=== PATIENT | male | born 1960 | race African-American/Black ===

== ENCOUNTER 2018-11-02 06:13 | Emergency (ER) | payer BC ==
--- NOTE | 2018-11-02 07:44 | EDPHYS ---
Physician Documentation [facility] Name: Christopher Price Jr Age: 58 yrs Sex: Male : 1960 Arrival Date: 11/02/2018 Time: 06:15 Bed 6 Private MD: Fady Álvarez ED Physician Bi Her HPI: 11/02 06:25 This 58 yrs old Black Male presents to ER via Unassigned with complaints of Cold kb Symptoms. 06:25 The patient or guardian reports cough, that is intermittent, described as moderate, kb with productive sputum. Onset: The symptoms/episode began/occurred 10 day(s) ago. Severity of symptoms: At their worst the symptoms were mild, moderate, in the emergency department the symptoms are unchanged. Modifying factors: The symptoms are alleviated by nothing, the symptoms are aggravated by nothing. Associated signs and symptoms: Pertinent positives: sore throat, vomiting, Pertinent negatives: chest pain, diarrhea, ear ache, fever, nausea, rhinorrhea. The patient has not experienced similar symptoms in the past. The patient has not recently seen a physician. Pt reports cough and vomiting mucus for [address] Álvarez on 10/24 and was given bromfed dm, but he completed the bottle and it hasn't gone away. "This should have knocked it out.". Historical: - Allergies: 06:33 No Known Allergies; jd3 - Home Meds: 06:33 Metformin Oral [Active]; benazepril oral oral [Active]; jd3 - PMHx: 06:33 Diabetes - NIDDM; Hypertension; High Cholesterol; jd3 - PSHx: 06:33 Hernia repair; jd3 - Immunization history:: Adult Immunizations up to date. - Social history:: Smoking status: Patient/guardian denies using tobacco. - Ebola Screening: : Patient negative for fever greater than or equal to 101.5 degrees Fahrenheit, and additional compatible Ebola Virus Disease symptoms. ROS: 06:23 Constitutional: Negative for fever, chills, and weight loss, Neck: Negative for injury, kb pain, and swelling, Cardiovascular: Negative for chest pain, palpitations, and edema, Back: Negative for injury and pain, : Negative for injury, bleeding, discharge, and swelling, MS/Extremity: Negative for injury and deformity, Skin: Negative for injury, rash, and discoloration, Neuro: Negative for headache, weakness, numbness, tingling, and seizure. 06:23 ENT: Positive for sore throat. 06:23 Respiratory: Positive for cough, Negative for dyspnea on exertion, hemoptysis, orthopnea, pleurisy, shortness of breath, wheezing. 06:23 Abdomen/GI: Positive for vomiting, Negative for abdominal pain, nausea, diarrhea, constipation, abdominal cramps, abdominal distension, anorexia. Exam: 06:23 Constitutional: This is a well developed, well nourished patient who is awake, alert, kb and in no acute distress. Head/Face: Normocephalic, atraumatic. Neck: Trachea midline, no thyromegaly or masses palpated, and no cervical lymphadenopathy. Supple, full range of motion without nuchal rigidity, or vertebral point tenderness. No Meningismus. Chest/axilla: Normal chest wall appearance and motion. Nontender with no deformity. No lesions are appreciated. Cardiovascular: Regular rate and rhythm with a normal S1 and S2. No gallops, murmurs, or rubs. Normal PMI, no JVD. No pulse deficits. Respiratory: Lungs have equal breath sounds bilaterally, clear to auscultation and percussion. No rales, rhonchi or wheezes noted. No increased work of breathing, no retractions or nasal flaring. Abdomen/GI: Soft, non-tender, with normal bowel sounds. No distension or tympany. No guarding or rebound. No evidence of tenderness throughout. Skin: Warm, dry with normal turgor. Normal color with no rashes, no lesions, and no evidence of cellulitis. MS/ Extremity: Pulses equal, no cyanosis. Neurovascular intact. Full, normal range of motion. Neuro: Awake and alert, GCS 15, oriented to person, place, time, and situation. Cranial nerves II-XII grossly intact. Motor strength 5/5 in all extremities. Sensory grossly intact. Cerebellar exam normal. Normal gait. 06:23 ENT: External ear(s): are unremarkable, Ear canal(s): are normal, TM's: are normal, Nose: is normal, Mouth: is normal, Posterior pharynx: Airway: normal, Tonsils: are normal in appearance, Uvula: normal, midline, swelling, is not appreciated, erythema, that is mild. Vital Signs: 06:30 BP 148 / 80; Pulse 71; Resp 18 S; Temp 97.5(O); Pulse Ox 99% on R/A; Weight 129.73 kg jd3 (R); Height 6 ft. 6 in. (198.12 cm) (R); Pain 7/10; 07:20 BP 137 / 88; Pulse 65; Resp 14; Temp 98.2; Pulse Ox 99% on R/A; Pain 5/10; ch 06:30 Body Mass Index 33.05 (129.73 kg, 198.12 cm) jd3 MDM: 06:22 Patient medically screened. kb 06:23 Data reviewed: vital signs, nurses notes. kb 07:08 Data interpreted: Pulse oximetry: on room air is 99 %. Interpretation: normal. kb 07:38 Counseling: I had a detailed discussion with the patient and/or guardian regarding: the kb historical points, exam findings, and any diagnostic results supporting the discharge/admit diagnosis, lab results, radiology results, the need for outpatient follow up, a family practitioner, to return to the emergency department if symptoms worsen or persist or if there are any questions or concerns that arise at home. 11/02 06:23 Order name: Flu; Complete Time: 07:37 kb 11/02 06:23 Order name: Strep; Complete Time: 07:37 kb 11/02 06:23 Order name: Chest Pa And Lat (2 Views) XRAY 11/02 07:38 Order name: Throat Culture EDMS Administered Medications: No medications were administered Disposition: 11/02/18 07:43 Discharged to Home. Impression: Cough. - Condition is Stable. - Discharge Instructions: Cough, Adult, [id number]. - Medication Reconciliation Form, Thank You Letter, Antibiotic Education, Prescription Opioid Use form. - Follow up: Emergency Department; When: As needed; Reason: Worsening of condition. Follow up: Private Physician; When: 2 - 3 days; Reason: Recheck today's complaints, Continuance of care, Re-evaluation by your physician. - Notes: Take an antihistamine daily (yola, claritin, or zyrtec) Addendum: 11/06/2018 06:59 Co-signature as Attending Physician, Bi Her MD. g s Signatures: Dispatcher [employer] EDLennie Thomas, DAVIE BRIONES-Susan Gamboa, RN RN sv Bi Her MD MD gs Davies, Jonathon RN RN jd3 Corrections: (The following items were deleted from the chart) 11/02 07:48 07:43 11/02/2018 07:43 Discharged to Home. Impression: Cough. Condition is Stable. sv Forms are Medication Reconciliation Form, Thank You Letter, Antibiotic Education, Prescription Opioid Use. Follow up: Emergency Department; When: As needed; Reason: Worsening of condition. Follow up: Private Physician; When: 2 - 3 days; Reason: Recheck today's complaints, Continuance of care, Re-evaluation by your physician. kb
--- NOTE | 2018-11-02 07:44 | ER ---
Nurse's Notes [facility] Name: Christopher Price Jr Age: 58 yrs Sex: Male : 1960 Arrival Date: 11/02/2018 Time: 06:15 Bed 6 Private MD: Fady Álvarez Diagnosis: Cough Presentation: 11/02 06:29 Presenting complaint: Patient states: "I have had a cold for a while now and I can't jd3 stop coughing now and I have even finished the medication form the doctor.". Transition of care: patient was not received from another setting of care. Onset of symptoms was November 02, 2018. Risk Assessment: Do you want to hurt yourself or someone else? Patient reports no desire to harm self or others. Initial Sepsis Screen: Does the patient meet any 2 criteria? No. Patient's initial sepsis screen is negative. Does the patient have a suspected source of infection? No. Patient's initial sepsis screen is negative. Care prior to arrival: None. 06:29 Method Of Arrival: Ambulatory j 06:29 Acuity: LAURI 4 jd3 Historical: - Allergies: 06:33 No Known Allergies; jd3 - Home Meds: 06:33 Metformin Oral [Active]; benazepril oral oral [Active]; jd3 - PMHx: 06:33 Diabetes - NIDDM; Hypertension; High Cholesterol; jd3 - PSHx: 06:33 Hernia repair; jd3 - Immunization history:: Adult Immunizations up to date. - Social history:: Smoking status: Patient/guardian denies using tobacco. - Ebola Screening: : Patient negative for fever greater than or equal to 101.5 degrees Fahrenheit, and additional compatible Ebola Virus Disease symptoms. Screenin:33 Abuse screen: Denies threats or abuse. Nutritional screening: No deficits noted. jd3 Tuberculosis screening: No symptoms or risk factors identified. Fall Risk Ambulatory Aid- None/Bed Rest/Nurse Assist (0 pts). Gait- Normal/Bed Rest/Wheelchair (0 pts) Mental Status- Oriented to own ability (0 pts). Total Hernandez Fall Scale indicates No Risk (0-24 pts). Assessment: 06:34 General: Appears in no apparent distress. comfortable, Behavior is calm, cooperative, ao appropriate for age. Pain: Denies pain. Neuro: Level of Consciousness is awake, alert, obeys commands, Oriented to person, place, time, situation, Appropriate for age Moves all extremities. Full function Speech is normal, Facial symmetry appears normal. Cardiovascular: Capillary refill < 3 seconds Patient's skin is warm and dry. Respiratory: Airway is patent Respiratory effort is even, unlabored, Respiratory pattern is regular, symmetrical. Respiratory: Reports cough that is productive. GI: Abdomen is non-distended, Reports normal bowel habits, Patient currently denies nausea, vomiting. : No signs and/or symptoms were reported regarding the genitourinary system. EENT: No signs and/or symptoms were reported regarding the EENT system. Derm: Skin is intact, Skin is pink, warm \\T\\ dry. normal, Skin temperature is warm. Musculoskeletal: Circulation, motion, and sensation intact. Range of motion: intact in all extremities. 07:20 Reassessment: Patient appears in no apparent distress at this time. No changes from ch previously documented assessment. Patient and/or family updated on plan of care and expected duration. Pain level reassessed. Patient is alert, oriented x 3, equal unlabored respirations, skin warm/dry/pink. Pain: Denies pain. Neuro: No deficits noted. Level of Consciousness is awake, alert, obeys commands, Oriented to person, place, time, situation. 07:47 Reassessment: Patient appears in no apparent distress at this time. No changes from sv previously documented assessment. Patient and/or family updated on plan of care and expected duration. Pain level reassessed. Patient is alert, oriented x 3, equal unlabored respirations, skin warm/dry/pink. Vital Signs: 06:30 BP 148 / 80; Pulse 71; Resp 18 S; Temp 97.5(O); Pulse Ox 99% on R/A; Weight 129.73 kg jd3 (R); Height 6 ft. 6 in. (198.12 cm) (R); Pain 7/10; 07:20 BP 137 / 88; Pulse 65; Resp 14; Temp 98.2; Pulse Ox 99% on R/A; Pain 5/10; ch 06:30 Body Mass Index 33.05 (129.73 kg, 198.12 cm) jd3 ED Course: 06:15 Patient arrived in ED. es 06:15 Fady Álvarez MD is Private Physician. es 06:17 Lenn[facility] Castorena [facility]-C [facility] kb 06:17 Bi Her MD is Attending Physician. kb 06:30 Triage completed. jd3 06:31 Arm band placed on. jd3 06:33 Patient has correct armband on for positive identification. Bed in low position. Call jd3 light in reach. Side rails up X 1. 07:05 Chest Pa And Lat (2 Views) XRAY In Process Unspecified. EDMS 07:20 Ann Blanco, RN is Primary Nurse. ch 07:20 No apparent distress. Resting quietly. ch 07:20 Pulse ox on. NIBP on. ch 07:20 No provider procedures requiring assistance completed. Patient did not have IV access ch during this emergency room visit. Administered Medications: No medications were administered Outcome: 07:43 Discharge ordered by MD. kb 07:48 Discharged to home ambulatory. sv 07:48 Condition: stable 07:48 Discharge instructions given to patient, Instructed on discharge instructions, follow up and referral plans. OTC meds to get. Demonstrated understanding of instructions, follow-up care. 07:48 Patient left the ED. sv Signatures: Dispatcher [employer] EDWV Lennie Castorena FNP-C PER DIEM PHYSICAL THERAPIST-Artb Ann Blanco, RN RN Susan Braun RN RN Estefania Horne Alex RN Aba Estrella RN RN jd3 Corrections: (The following items were deleted from the chart) 06:38 06:34 GI: Abdomen is obese, ao ao
[2018-11-02 07:53] VITALS: O2SAT 99
[2018-11-02 07:54] VITALS: BP 137/88; TEMP 98.2
--- NOTE | 2018-11-02 09:49 | RAD REPORT ---
EXAM DESCRIPTION: RAD - Chest Pa And Lat (2 Views) - 11/02/2018 7:05 am CLINICAL HISTORY: Cough and congestion, shortness of breath COMPARISON: January 2017 TECHNIQUE: PA and lateral views of the chest were obtained. FINDINGS: The lungs are clear of a focal mass or consolidation. Heart size is normal and central v asculature is within normal limits. No pleural effusion or pneumothorax seen. No acute bony finding noted. No aortic abnormality. IMPRESSION: No acute cardiopulmonary process. No significant change from the comparison study.
== END 2018-11-02 07:48 | disposition home or self-care (01) ==
LOC: ER 06:13
DX: R05 Cough (principal); I10 Essential (primary) hypertension; E11.9 Type 2 diabetes mellitus without complications
CPT/HCPCS: 71046; 87070; 87081; 87804; 99283